=== PATIENT | female | born 2000 | race Caucasian/White ===

== ENCOUNTER → 2020-08-10 09:27 | Outpatient (BNVA) | payer MEDICAID, SELFPAY | PROVIDERS: PCP Pediatrics; Visit Provider Advanced Practice Midwife | DX: Z76.89 Persons encountering health services in other specified circumstances (principal) ==

== ENCOUNTER 2021-04-01 00:33 | Emergency (ER) | payer MEDICAID, SELFPAY ==
--- NOTE | ~2021-04-01 | XR_ITS ---
EXAMINATION: XR CHEST CLINICAL INFORMATION: Chest pressure COMPARISON: None TECHNIQUE: Frontal view of the chest was obtained. FINDINGS: Cardiac leads overlie the chest. The lungs are well expanded. There is no focal consolidation, edema, or effusion. No pneumothorax. The cardiomediastinal silhouette is within normal limits. No acute osseous abnormality. XR/XR chest 1V IMPRESSION: Clear lungs.
[2021-04-01 00:42] VITALS: BP 134/96; PULSE 130; RESP 19; TEMP 37.1; O2SAT 97; BMI 24.3
--- NOTE | 2021-04-01 00:56 | ECG_ITS ---
Test Reason : CHEST PRSESSURE Blood Pressure : / mmHG Vent. Rate : 117 BPM Atrial Rate : 117 BPM P-R Int : 130 ms QRS Dur : 080 ms QT Int : 316 ms P-R-T Axes : 038 058 040 degrees QTc Int : 440 ms Sinus tachycardia Otherwise normal ECG No previous ECGs available Referred By: Generic ED Physician Electronically Signed By:RAIN MANN
[2021-04-01 01:07] LABS: MANUAL DIFF FLAG NO
[2021-04-01 01:08] LABS: Basophils Percent Auto 0.2 % (0-2); Eosinophils Percent Auto 0.2 % (0-4); Hemoglobin 11.2 g/dl (12.0-16.0); Imm Gran Abs Auto 0.01 X10*3/uL (0.00-0.03); Imm Gran Pct Auto 0.2 % (0.0-0.4); Lymphocytes Absolute Auto 0.8 X10*3/uL (1.2-4.9); Lymphocytes Percent Auto 18.7 % (20-40); Mean Corpuscular HGB Conc 32.9 g/dl (31.0-35.0); Mean Corpuscular Hemoglobin 27.7 pg (27.0-33.0); Mean Corpuscular Volume 84.2 fL (80-98); Monocytes Absolute Auto 0.5 X10*3/uL (0.1-1.2); Monocytes Percent Auto 12.2 % (2-11); Neutrophils Percent Auto 68.5 % (45-73); Platelet Count 214 X10*3/uL (160-400); Red Blood Count 4.04 X10*6/uL (4.20-5.50); Red Cell Distribution Width 12.8 % (11.0-16.0); White Blood Count 4.4 X10*3/uL (4.8-10.8)
--- NOTE | 2021-04-01 01:11 | PC.NURSE ---
After completing triage patient stated that she is on penicillin for strep throat since yesterday. And that rash extends to her vaginal area
[2021-04-01 01:13] VITALS: RESP 16; O2SAT 99
[2021-04-01 01:28] VITALS: BP 133/81; PULSE 113; RESP 14; TEMP 37; O2SAT 65
[2021-04-01 01:31] LABS: Anion Gap 12 (12-20); Blood Urea Nitrogen 6 mg/dL (9-16); Calcium 9.3 mg/dL (8.4-10.2); Carbon Dioxide 25 mmol/L (22-29); Chloride 105 mmol/L (96-108); Creatinine Clr Calc Pharmacy 105.7; Estimated Glomerular Filt Rate > 60; Glucose Random 136 mg/dL (60-115); Potassium 3.5 mmol/L (3.3-5.1); Sodium 138 mmol/L (135-145)
[2021-04-01 01:36] LABS: Troponin-I High Sensitivity < 3.5 ng/L (<3.5-17.0)
--- NOTE | 2021-04-01 03:56 | ED_ITS ---
HPI - General Adult General Chief complaint: Skin/Abscess/Foreign Body Stated complaint: allergic reaction to poison heraclio Time Seen by Provider: 04/01/21 00:58 Source: patient Mode of arrival: ambulatory Limitations: no limitations History of Present Illness HPI narrative: 20-year-old female who presents emergency department for evaluation possible poison heraclio and her rash on her hands, feet and thighs. The patient states that on Monday (3 days prior to evaluation) she was standing next to a fence that had poison heraclio narinder on it. The patient did not touch the narinder. She states that on Monday (2 days prior to evaluation) she developed fever muscle aches and chills. She then developed a rash on her hands, feet, and behind her thighs. She states that she also developed a sore throat. She was evaluated by her PCP today who did a rapid strep which was negative. The PCP was concerned that the patient's symptoms were caused by streptococcal infection and started the patient on penicillin. The patient states that the rash spread to her face and involved her nostrils and she felt like she was having difficulty swallowing. She states she did some research on the Internet and found that of poison heraclio spread to the face and had difficulty swallowing you should go to the emergency department, therefore she came to the emergency department for evaluation. The patient states that she has had eczema in the past on her hands but this rash looks different. The patient is sexually active and she states that she had sex last week with a woman. She states that she has a vaginal discharge for 4 days and she has had similar vaginal discharge in the past and was diagnosed with bacterial vaginosis. The discharge is a thin green discharge that has a odor to it. states this was treated with Flagyl twice a day for 7 days in the past. Related Data Previous Rx's Medication Instructions Recorded metronidazole 500 mg tablet 500 mg PO BID 7 Days #14 tab 04/01/21 (Flagyl) Allergies Allergy/AdvReac Type Severity Reaction Status Date / Time acetaminophen [From TYLENOL] Allergy Unknown FACIAL Unverified 04/30/20 19:27 SWELLING Review of Systems Review of Systems: Yes all other systems are reviewed and are negative PMFSH Past Medical History [facility] Narrative: Past medical history: Eczema. Past surgical history: None. Social history: The patient uses a vape pen multiple times a day. She vapes nicotine. She occasionally drinks alcohol. She denies drug use. Family History Family History Mother Hypertension FH: mental illness Father Hypertension Maternal Grandmother Hypertension FH: mental illness Maternal Grandfather Diabetes mellitus Social History Social History Alcohol intake: never Advance Directives: No Advance Directives Information Provided: Yes Patient : No Sexual orientation: Straight/Heterosexual Physical Exam Vital Signs: Vital Signs: Last Vital Signs Temp 98.6 F 04/01/21 01:28 Pulse 113 H 04/01/21 01:28 Resp 14 04/01/21 01:28 BP 133/81 04/01/21 01:28 Pulse Ox 65 L 04/01/21 01:28 Body Mass Index 24.3 Const: General: cooperative and no acute distress Orientation/consciousness: oriented to person and oriented to place Limitations: no limitations HENMT: Head: Yes normal to inspection, Yes normocephalic and Yes atraumatic Ears: external ears normal General nose exam: Normal external nose present Face and sinus: Yes normal facial exam Mouth: other (Erythema with pustular lesions on the buccal mucosa) Throat: Yes other (Pustule lesions on the posterior pharynx with erythema) Eyes: General: appearance normal, both eyes and all related structures Pupils: Equal, round and reactive pupils present Neck: Neck: Yes normal visual inspection, Yes no lymphadenopathy, Yes trachea midline and Yes supple Chest: Chest palpation & inspection: normal inspection of the chest and normal palpation of entire chest wall Resp: Effort & Inspection: normal respiratory effort and able to speak in complete sentences Auscultation: clear to auscultation bilaterally Cardio: Rate: regular rate Rhythm: regular rhythm Heart sounds: S1 normal heart sound present, S2 normal heart sound present and no murmurs GI: Inspection: Yes normal to inspection Palpation (GI): Soft to palpation, nontender and no guarding Auscultation: normal bowel sounds : General: Yes no CVA tenderness Back/Spine/Pelvis: Back: no CVA tenderness Skin: Other: The patient has a pustular like lesion on the palm sore hand with similar lesions on the PACS her hands. She has several lesions on the soles of her feet. Patient also has a rash on the backs of her thighs with only a few pustules. The rash is not painful to palpation. General skin exam: no rashes or lesions noted Neuro: General: oriented to person and oriented to place Cranial nerves: Yes CN's II-XII intact bilaterally and Yes Equal, round and reactive pupils present Cognition (Neuro): normal cognition Motor exam (neuro): 5/5 motor strength present throughout Extrem: General: Yes normal to inspection Psych: Appearance: grossly normal Speech and movement: Normal speech and movement present Affect: normal affect Attitude: cooperative Thought process: Normal thought process present Thought content: Normal thought content present Course Course Course Narrative: 20-year-old female who presents emergency department for evaluation of systemic symptoms of fever, chills, myalgias and a rash mainly involving the palm is a of the hands and the dorsal aspect of the hands as well as some lesions noted on the soles of the feet. She also has some lesions noted on her posterior thighs. Vital signs revealed initially that she was tachycardic with a pulse of 130 and this improved to 113. Vital signs were otherwise unremarkable. The patient's physical examination except for the rash was unremarkable. At this time, I am not certain what is causing this patient's rash, the differential includes was not limited to disseminated gonorrhea, tick- borne illness, syphilis. Laboratory evaluation was ordered. 0417: Laboratory evaluation revealed a low white blood count of 4400, anemia with an H&H of 11.2 and 34.0. The anemia has been present in the past but the low WBC is new. BMP was unremarkable. At this time I do not have a clear etiology for the patient's symptoms, I did order a syphilis profile, GC chlamydia and tick-borne illness panel. I offered to treat the patient with IM penicillin however at this time she would rather wait for the results to come back for the STD and tick-borne illnesses. The patient would like to be treated for possible bacterial vaginosis so I did give her prescription for Flagyl 500 mg twice a day for 7 days. Patient was discharged home. The patient was given verbal and printed instructions prior to discharge. The patient was given verbal and printed instructions prior to discharge. The patient was advised to follow- up with her PCP in 2 days and to return to the emergency department if her symptoms get worse or if she develops any new symptoms that are concerning to her. Medical Decision Making Lab Data Result diagrams: 04/01/21 01:02 04/01/21 01:02 Labs: Lab Results 04/01/21 04/01/21 04/01/21 Range/Units 01:02 01:02 01:02 WBC 4.4 L (4.8-10.8) X10*3/uL RBC 4.04 L (4.20-5.50) X10*6/uL Hgb 11.2 L (12.0-16.0) g/dl Hct 34.0 L (37-47) % MCV 84.2 (80-98) fL MCH 27.7 (27.0-33.0) pg MCHC 32.9 (31.0-35.0) g/dl RDW 12.8 (11.0-16.0) % Plt Count 214 (160-400) X10*3/uL MPV 10.0 (9.4-12.3) fL Immature Gran % (Auto) 0.2 (0.0-0.4) % Neut % (Auto) 68.5 (45-73) % Lymph % (Auto) 18.7 L (20-40) % [place] % (Auto) 12.2 H (2-11) % Eos % (Auto) 0.2 (0-4) % Baso % (Auto) 0.2 (0-2) % Lymph # (Auto) 0.8 L (1.2-4.9) X10*3/uL [place] # (Auto) 0.5 (0.1-1.2) X10*3/uL Eos # (Auto) 0.0 (0.0-0.4) X10*3/uL Baso # (Auto) 0.0 (0.0-0.2) X10*3/uL Abs Immat Gran (auto) 0.01 (0.00-0.03) X10*3/uL Absolute Neuts (auto) 3.0 (2.0-8.3) X10*3/uL Absolute Nucleated RBC 0.000 (0.0-0.012) X10*3/uL Nucleated RBC % (auto) 0.0 (0.0-0.2) /100WBC Sodium 138 (135-145) mmol/L Potassium 3.5 (3.3-5.1) mmol/L Chloride 105 (96-108) mmol/L Carbon Dioxide 25 (22-29) mmol/L Anion Gap 12 (12-20) BUN 6 L (9-16) mg/dL Creatinine 0.72 (0.5-1.4) mg/dL Estim Creat Clear Calc 105.7 Estimated GFR > 60 Random Glucose 136 H (60-115) mg/dL Calcium 9.3 (8.4-10.2) mg/dL Troponin I High Sens < 3.5 (<3.5-17.0) ng/L Discharge Plan Discharge Clinical Impression: Rash Patient Disposition: Home, Self-Care Additional Instructions: At this time I do not have a clear cause for your rash, I do not think that this is caused by poison heraclio. You were tested for syphilis, gonorrhea and chlamydia. Your also tested for tick-borne illnesses. These tests will not come back today. You will need to follow-up with her doctor within the next 3-7 days to get these results back. I am going to treat you for bacterial vaginosis with Flagyl (metronidazole) 500 mg pills, 1 pill every 12 hours for 7 days. Complete the course of penicillin as prescribed by your doctor. This would treat the strep throat but but not treat any tick-borne illness or sexually transmitted illness. Follow-up with your doctor in 2 days. Please return to the emergency department if your symptoms get worse or if you develop any symptoms that are concerning to you. Prescriptions: New metronidazole [Flagyl] 500 mg tablet 500 mg PO BID 7 Days Qty: 14 RF: 0
[2021-04-01 04:00] VITALS: PULSE 118; RESP 18
[2021-04-01 09:39] LABS: CT PCR NOT DETECTED (Not Detect.); NG PCR NOT DETECTED (Not Detect.)
[2021-04-02 08:38] LABS: Syphilis Screen Nonreactive (Nonreactive)
[2021-04-02 19:02] LABS: A. Phagocytphilium DNA,RT-PCR NOT DETECTED (NOT DETECTED); Babesia Microti DNA, RT-PCR NOT DETECTED (NOT DETECTED); Borrelia Miyamotoi,DNA RT-PCR NOT DETECTED (NOT DETECTED); E.Chaffeensis DNA RT-PCR NOT DETECTED (NOT DETECTED); Lyme(Borrelia ssp)DNA RT-PCR NOT DETECTED (NOT DETECTED); Source-Tick borne disease BLOOD
== END 2021-04-01 04:52 | disposition home or self-care (01) ==
PROVIDERS: Emergency Provider Emergency Medicine Emergency Medical Services; PCP Pediatrics
DX: R21 Rash and other nonspecific skin eruption (principal); R00.0 Tachycardia, unspecified; N76.0 Acute vaginitis
CPT/HCPCS: 36415; 71045; 80048; 84484; 85025; 86780; 87040; 87491; 87591; 87798; 87801; 93005; 99284; 99285

== ENCOUNTER 2021-06-02 13:16 | Emergency (ER) | payer MEDICAID, SELFPAY ==
[2021-06-02 13:43] VITALS: BP 127/75; PULSE 100; RESP 18; TEMP 36.3; O2SAT 99; BMI 22.3
--- NOTE | 2021-06-02 14:56 | ED.DENTAL ---
HPI - Dental/Oral General Chief complaint: Dental/Oral Stated complaint: dental pain Time Seen by Provider: 06/02/21 14:53 Source: patient Mode of arrival: ambulatory Limitations: no limitations History of Present Illness MD Complaint: tooth pain Teeth map: 1. Onset (ago): week(s) (Two weeks worse today) Duration: worsening Severity: severe Severity scale (1-10): >10 Relieving factors: nothing Exacerbating factors: chewing, cold, heat and drinking fluids Context: history of dental caries and poor dental care Associated symptoms: gum swelling Treatment prior to arrival: other (She has tried [id number] Motrin Tylenol no symptomatic relief) Related Data Previous Rx's Medication Instructions Recorded metronidazole 500 mg tablet 500 mg PO BID 7 Days #14 tab 04/01/21 (Flagyl) amoxicillin 875 mg-potassium 1 tab PO BID 10 Days #20 tab 06/02/21 clavulanate 125 mg tablet (Augmentin) chlorhexidine gluconate 0.12 % 15 ml BUCCAL BID #473 ml 06/02/21 mouthwash ibuprofen 800 mg tablet 800 mg PO Q8H PRN #14 tab 06/02/21 oxycodone 5 mg tablet 5 mg PO Q6H PRN #14 tab 06/02/21 Allergies Allergy/AdvReac Type Severity Reaction Status Date / Time acetaminophen [From TYLENOL] Allergy Unknown FACIAL Verified 06/02/21 13:43 SWELLING crab Allergy Unknown Verified 06/02/21 13:43 pistachio nut Allergy Unknown Verified 06/02/21 13:43 turkey Allergy Unknown Verified 06/02/21 13:43 Review of Systems Review of Systems: Constitutional : No Fever, No Chills, No changes in PO intake, No difficulty speaking, no recent dental procedure, no heat or cold intolerance while eating, no recent face trauma, ENT/Mouth : + Dental pain, No Sore throat, No Jaw pain, No throat swelling, No swallowing difficulty, no change in voice, No facial swelling, no drooling, no trismus, no bleeding, no lacerations, no tongue swelling, gum swelling, Eyes: No Eye Pain, No periorbital Swelling Cardiovascular : No Chest Pain, No SOB Respiratory : No Cough, No Sputum, No Wheezing, No Smoke Exposure, No Dyspnea Gastrointestinal : No Nausea, No Vomiting, No Diarrhea Genitourinary : No Dysuria Musculoskeletal : No Myalgias Skin : No rash, no facial swelling or redness, Neuro : No Weakness, No Numbness, No Headache Yes all other systems are reviewed and are negative [facility] Past Medical History Attestation statement: The following information was validated with the patient. Family History Family History Mother Hypertension FH: mental illness Father Hypertension Maternal Grandmother Hypertension FH: mental illness Maternal Grandfather Diabetes mellitus Social History Social History Alcohol intake: never Advance Directives: No Advance Directives Information Provided: No Patient : No Sexual orientation: Straight/Heterosexual Physical Exam Vital Signs: Vital Signs: Last Vital Signs Temp 97.3 F 06/02/21 13:43 Pulse 100 06/02/21 13:43 Resp 18 06/02/21 13:43 BP 127/75 06/02/21 13:43 Pulse Ox 99 06/02/21 13:43 Body Mass Index 22.3 vital signs have been reviewed as normal and appeared to be correct. Blood pressure normal. Heart rate normal. Respiration rate normal. Temperature normal. Oxygen saturation normal. Appearance: Alert. Oriented X3. No acute distress. Head: Normal external exam. Normocephalic. Atraumatic. Eyes: PERRLA. EOMI. Conjunctiva and sclera normal. Eyelids normal. ENT: EAC normal. TM's Normal. Pharynx normal. Uvula midline. Moist mucous membranes. No trismus noted. No drooling noted. No muffled voice noted. Dentition: Patient with multiple dental caries. Mild gingival erythema noted to the left upper where her tooth is hurting. Although no fluctuance. Not consistent with peritonsillar abscess. Not consistent with dental abscess. No salivary duct obstruction noted. Neck: Normal inspection. Neck supple. FROM. No adenopathy. Thyroid Normal. No meningeal signs. No neck mass noted. Trachea midline. CVS: Normal heart rate and rhythm. Heart sound normal. No murmurs noted. Pulses normal throughout. Respiratory: No respiratory distress. Painless inspiration. Breath sounds normal. No wheezes/rales/rhonchi noted. Chest nontender. No accessory muscle usage noted or decreased air movement noted. Back: Full range of motion noted. Skin: Skin warm and dry. Normal skin color. Normal skin turgor. No rashes/lesions/lacerations noted. Extremities:Extremities exhibit normal range of motion. Extremities nontender. Neuro: Oriented X 3. No motor deficit. No sensory deficit. Reflexes normal. Course Course Course Narrative: Patient with dental pain appears to be due to her dental caries could be possibly gingivitis although on exam no fluctuance is noted not consistent with peritonsillar abscess/pharyngeal abscess or dental abscess. Will DC home antibiotics and symptomatic treatment instructions return if any new or worsening symptoms and follow-up with primary care provider and polisher balance screwhead as she has been trying to get a hold of. Patient understands agrees with this plan. MDM - Dental/Oral Medical Records Attestation: I reviewed the patient's medical records. Discharge Plan Discharge Clinical Impression: Toothache, Dental caries Patient Disposition: Home, Self-Care Instructions: Toothache (ED) Prescriptions: New ibuprofen 800 mg tablet 800 mg PO Q8H PRN (Reason: pain) Qty: 14 RF: 0 amoxicillin-pot clavulanate [Augmentin] 875-125 mg tablet 1 tab PO BID 10 Days Qty: 20 RF: 0 oxycodone 5 mg tablet 5 mg PO Q6H PRN (Reason: pain) Qty: 14 RF: 0 chlorhexidine gluconate 0.12 % mouthwash 15 ml buccal BID Qty: 473 RF: 0 No Action metronidazole [Flagyl] 500 mg tablet 500 mg PO BID 7 Days Qty: 14 RF: 0 Referrals: Danna Benitez MD [Primary Care Provider] - 2 days Stand Alone Forms: Work/School Release Print Language: Ivorian
== END 2021-06-02 15:07 | disposition home or self-care (01) ==
PROVIDERS: Emergency Provider Emergency Medicine Emergency Medical Services; PCP Pediatrics
DX: K02.9 Dental caries, unspecified (principal)
CPT/HCPCS: 99283

== ENCOUNTER → 2021-06-16 13:02 | Outpatient (BNVA) | payer MEDICAID, SELFPAY | PROVIDERS: Visit Provider Advanced Practice Midwife | DX: N60.01 Solitary cyst of right breast (principal) | CPT/HCPCS: 99212 ==